=== PATIENT | male | born 1995 | race Caucasian/White ===

== ENCOUNTER 2020-05-30 11:00 | Outpatient (RCR) | payer OTHER | END 2020-06-08 | LOC: EDBD 11:00 → M ST 11:00 | PROVIDERS: ATTEND Physician Assistant | DX: F80.81 Childhood onset fluency disorder (principal) ==

== ENCOUNTER 2020-08-05 08:30 | Outpatient (RCR) | payer OTHER | END 2020-08-08 | LOC: M ST 08:30 | PROVIDERS: ATTEND Physician Assistant | DX: F98.5 Adult onset fluency disorder (principal) ==

== ENCOUNTER 2020-08-26 08:30 | Outpatient (RCR) | payer OTHER | END 2020-09-07 | LOC: M ST 08:30 | PROVIDERS: ATTEND Physician Assistant | DX: F98.5 Adult onset fluency disorder (principal) ==

== ENCOUNTER 2020-11-04 14:00 | Outpatient (RCR) | payer OTHER | END 2020-11-08 | LOC: M ST 14:00 | PROVIDERS: ATTEND Physician Assistant | DX: F98.5 Adult onset fluency disorder (principal) ==

== ENCOUNTER 2020-12-01 10:23 | Outpatient (RCR) | payer OTHER | END 2020-12-08 | LOC: M ST 10:23 | PROVIDERS: ATTEND Physician Assistant | DX: F98.5 Adult onset fluency disorder (principal) ==

== ENCOUNTER 2020-12-23 08:30 | Outpatient (RCR) | payer OTHER | END 2021-01-08 | LOC: M ST 08:30 | PROVIDERS: ATTEND Physician Assistant | DX: F98.5 Adult onset fluency disorder (principal) ==

== ENCOUNTER 2021-02-01 08:00 | Outpatient (RCR) | payer OTHER | END 2021-02-07 | LOC: M ST 08:00 | PROVIDERS: ATTEND Physician Assistant | DX: F98.5 Adult onset fluency disorder (principal) ==

== ENCOUNTER 2021-02-24 08:00 | Outpatient (RCR) | payer OTHER | END 2021-03-10 | LOC: M ST 08:00 | PROVIDERS: ATTEND Physician Assistant | DX: F80.81 Childhood onset fluency disorder (principal) ==

== ENCOUNTER 2021-03-31 08:05 | Outpatient (RCR) | payer OTHER | END 2021-04-10 | LOC: M ST 08:05 | PROVIDERS: ATTEND Physician Assistant | DX: F80.1 Expressive language disorder (principal) ==

== ENCOUNTER 2021-04-28 15:00 | Outpatient (RCR) | payer OTHER | END 2021-05-08 | LOC: M ST 15:00 | PROVIDERS: ATTEND Physician Assistant | DX: F80.81 Childhood onset fluency disorder (principal) ==